=== PATIENT | female | born 1980 ===

== ENCOUNTER 2024-07-26 11:11 | Emergency (ER) | payer SELFPAY ==
--- NOTE | ~2024-07-26 | XR_ITS ---
EXAMINATION: XR chest 2V DATE: 07/26/2024 11:38 INDICATION: Cough and body aches TECHNIQUE: PA and lateral views of the chest were obtained. COMPARISON: None FINDINGS: The lungs are clear with no focal airspace opacities, pulmonary edema, pleural effusion or pneumothor ax. The cardiomediastinal silhouette is normal. Chronic mild likely physiologic anterior wedging of a couple of the thoracal lumbar junction. IMPRESSION: 1. No acute cardiopulmonary disease. Reviewed, dictated and finalized at location A. O REPAIRMAN
[2024-07-26 11:24] VITALS: BP 121/65; PULSE 82; RESP 18; TEMP 37.3; O2SAT 100
[2024-07-26 11:25] VITALS: O2SAT 100
--- OUTSIDE RECORDS SUMMARY | 2024-07-26 11:29 | XMS_ITS | Referral Summary ---
Author Organization [facility] Address [address] [place] [address] Care Team Providers Care [employer] Name Role Phone Unknown, Notinfile Primary Care Provider Unavail able Doug Amos MILL REPRESENTATIVE Unavailable [phone] Encounters Date Type Department Care Team Description 05/17/2024 12:13 AM LACQUER COATER - 05/17/2024 5:02 AM LACQUER [facility]ATER Emergency [facility] Emergency Department [address] [place] [address] Beth Sosa MD UTI (urinary tract infection), uncomplicated (Primary Dx) Discharge Disposition: Discharge to home or self care from Last 3 Months Allergies No known active allergies Social History Tobacco Use Types Packs/Day Years Used Date Smoking Tobacco: Never Tobacco Cessation:Counseling Given: Not Answered Personal Safety Answer Date Recorded Have you ever been in or are you currently in a harmful physical or emotional relationship or is someone making you feel afraid or unsafe? Denies 05/16/2024 Comments Unknown Sex and Gender Information Value Date Recorded Sex Assigned at Not on file Legal Sex Female 5:41 PM LACQUER COATER Gender Identity Not on file Sexual Orientation Not on file Last Filed Vital Signs Vital Sign Reading Time Taken Comments Blood Pressure 98/58 05/17/2024 4:23 AM LACQUER [facility]ATER Pulse 65 05/17/2024 4:23 AM LACQUER COATER Temperature 36 C (96.8 F) 05/16/2024 10:32 PM LACQUER [facility]ATER Respiratory Rate 16 05/17/2024 4:23 AM LACQUER COATER Oxygen Saturation 98% 05/17/2024 4:23 AM LACQUER [facility]ATER Inhaled Oxygen Concentration - - Weight 49.8 kg (109 lb 12.6 oz) 024 10:32 PM LACQUER [facility]ATER Height 157.5 cm (5' 2 ) 01/28/2024 6:19 AM CDT Body Mass Index 20.08 01/28/2024 6:19 AM CDT Plan of Treatment Not on file Procedures Procedure Name Priority Date/Time Associated Diagnosis Comments COCAINE METABOLITE, URINE, CONFIRMATION Routine 05/17/2024 1:14 AM LAC[facility]ER [facility]ATER URINALYSIS, MICROSCOPIC ONLY Routine 05/17/2024 1:14 AM LACQUER [facility]ATER EGFR STAT 05/17/2024 1:14 AM LAC[facility]ATER DIFFERENTIAL AUTO STAT 05/17/2024 1:1 4 AM [facility]AC[facility]ER [facility]ATER BASIC METABOLIC PANEL STAT 05/17/2024 1:14 AM LACQUER COATER CBC WITH AUTO DIFFERENTIAL STAT 05/17/2024 1:14 AM LAC[facility]ER COATER DRUGS OF ABUSE SCREEN, URINE WITH REFLEX CONFIRMATION Routine 05/17/2024 1:14 AM LACQUER [facility]ATER HCG, URINE, QUALITATIVE STAT 05/17/2024 1:14 AM LAC[facility]ATER URINE CULTURE Routine 05/17/2024 1:14 AM LAC[facility]ER [facility]ATER INFLUENZA A/B, RSV, AND COVID-19 PCR Routine 05/17/2024 1:14 AM LAC[facility]ATER URINALYSIS AND REFLEX TO MICROSCOPIC AND CULTURE Routine 05/17/2024 1:14 AM LACQUER [facility]ATER XR CHEST PA LATERAL 2 VIEWS ED 05/17/2024 12:57 AM LACQUER [facility]ATER SCREENING MAMMOGRAM BILATERAL W ERVIN Schedule Routine, Read Routine (OP Routine) 09/19/2021 12:19 PM CDT Screening mammogram, encounter for from Last 3 Months or Most Recently Relevant to Health Maintenance Results * Influenza A/B, RSV, and COVID-19 PCR Nasopharyngeal (05/17/2024 1:14 AM LACQUER [facility]ATER) COVID-19 RNA Negative Negative Influenza A RNA Negative Negative [facility] ([place]) Influenza B RNA Negative Negative [facility] ([place]) RSV RNA Negative Negative [facility] ([place]) Comment: Interpretive data: Testing performed by [facility]. This test is performed using the [employer] Xpert Xpress CoV-2/Flu/RSV plus assay. This is a multiplex, real- time reverse transcriptase PCR assay intended for the qualitative detection of nucleic acid from SARS-CoV-2, influenza A, influenza B, and respiratory syncytial virus. This assay has been cleared by the [place] Food and Drug administration. The performance characteristics have been verified by the [facility]. Results must be considered in the clinical context, and a negative result does not rule out infection. Interpretive Data last revised 2023 Nasopharyngeal 05/17/2024 1: 14 AM LAC[facility]ER [facility]ATER 05/17/2024 1:39 AM LAC[facility]ER [facility]ATER Narrative [facility] ([place]) - 05/17/2024 2:36 AM [facility]ATER Is the Patient experiencing symptoms consistent with COVID?->Yes us Beth Sosa MD LAB MICROBIOLOGY - GENERAL ORDER [place] Final Result [facility] ([place]) 1 [facility] [place] [address] * (ABNORMAL) Drugs of Abuse Screen, Urine with Reflex Confirmation (05/17/2024 1:14 AM LACQUER COATER) Amphetamine, ur Not Detected CutOff 500ng/mL Comment: Interpretive Data - Amphetamines: Samples containing greater than 500 ng/mL d-methamphetamine or other cross-reacting amphetamine compounds are reported as positive. Amphetamine immunoassays are subject to significant false positive rates due to cross-reactivity of non-amphetamine drugs. Confirmatory testing required for definitive results. Current Interpretive Data was last reviewed 2023. Barbiturates, ur Not Detected CutOff 200ng/mL [facility] ([place]) Comment: Interpretive Data - Barbiturates: Samples containing greater than 200 ng/mL secobarbital or other cross-reacting barbiturate compounds are reported as positive. False positive and false negative results are possible. Confirmatory testing required for definitive results. Current Interpretive Data was last reviewed 2023. Benzodiazepines, ur Not Detected CutOff 100ng/mL [facility] ([place]) Comment: Interpretive Data - Benzodiazepines: Samples containing greater than 100 ng/mL nordiazepam or other cross-reacting compounds are reported as positive. False positive and false negative results are possible. Confirmatory testing required for definitive results. Current Interpretive Data was last reviewed 2023. Cannabinoids, ur Screen Positive, presumptive (A) CutOff 50 ng/mL [facility] ([place]) Comment: Interpretive Data - Cannabinoids: Samples containing greater than 50 ng/mL delta-9 THC -COOH or other cross- reacting compounds are reported as positive. False positive and false negative results are possible. Confirmatory testing required for definitive results. Current Interpretive Data was last reviewed 2023. Cocaine, ur Screen Positive, presumptive (A) CutOff 150ng/mL [facility] ([place]) Comment: Interpretive Data - Cocaine: Samples containing greater than 150 ng/mL benzoylecgonine or other cross- reacting compounds are reported as positive. False positive and false negative results are possible. Confirmatory testing required for definitive results. Current Interpretive Data was last reviewed 2023. Fentanyl, Ur Not Detected CutOff 5 ng/mL [facility] ([place]) Comment: Interpretive Data - Fentanyl: Samples containing greater than 5 ng/mL norfentanyl, fentanyl, or other cross-reacting fentanyl compounds are reported as positive. False positive and false negative results are possible. Confirmatory testing required for definitive results. Current Interpretive Data was last reviewed 2023. Methadone, ur Not Detected CutOff 300ng/mL [facility] ([place]) Comment: Interpretive Data - Methadone: Samples containing greater than 300 ng/mL d,l-methadone or other cross-reacting compounds are reported as positive. False positive and false negative results are possible. Confirmatory testing required for definitive results. Current Interpretive Data was last reviewed 2023. Opiates, ur Not Detected CutOff 300ng/mL [facility] ([place]) Comment: Interpretive Data - Opiates: Samples containing greater than 300 ng/mL morphine or other cross-reacting compounds are reported as positive. False positive and false negative results are possible. Confirmatory testing required for definitive results. Current Interpretive Data was last reviewed 2023. Oxycodone, ur Not Detected CutOff 100ng/mL [facility] ([place]) Comment: Interpretive Data - Oxycodone: Samples containing greater than 100 ng/mL oxycodone or other cross-reacting compounds are reported as positive. False positive and false negative results are possible. Confirmatory testing required for definitive results. Current Interpretive Data was last reviewed 2023. Phencyclidine, ur Not Detected CutOff 25 ng/mL [facility] ([place]) Comment: Interpretive Data - Phencyclidine: Samples containing greater than 25 ng/mL phencyclidine or other cross-reacting compounds are reported as positive. False positive and false negative results are possible. Confirmatory testing required for definitive results. Current Interpretive Data was last reviewed 2023. Urine Creatinine 98 mg/dL [facility] ([place]) Comment: Interpretive Data Urine Creatinine: < 10 mg/dL is extremely dilute = or > 10 but < 20 mg/dL is dilute = or > 20 mg/dL is normal Current Interpretive Data was last revised on 2017. Urine 05/17/2024 1:14 AM [facility]ATER 05/17/2024 3:21 AM [facility]ATER Narrative [facility] ([place]) - 05/17/2024 3:34 AM [facility]AC[facility]ER [facility] Drug of Abuse screening is performed by immunoassay for medical purposes only. This is not to be used for Pain Management purposes. If Detected, confirmation testing will be performed for Amphetamines, Cocaine, Fentanyl, Methadone, Opiates, Oxycodone or Phencyclidine. us Beth Sosa MD LAB URINE ORDERABLES Final Resul t [facility] ([place]) 1 [facility] Department [place] [address] * eGFR (05/17/2024 1:14 AM LACQUER COATER) eGFR >90 >=60 mL/min/1. 73 m2 Comment: Interpretive Data Reference Interval Normal >/= 90 mL/min/1.73m2 Mildly decreased* 60 - 89 mL/min/1.73m2 Mildly to moderately decreased 45 - 59 mL/min/1.73m2 Moderately to severely decreased 30 - 44 mL/min/1.73m2 Severely decreased 15 - 29 mL/min/1.73m2 Kidney Failure < 15 mL/min/1.73m2 *Relative to young adult level Estimated glomerular filtration rate is determined by the 2020 CKD-EPI equation recommended by the National Kidney Foundation (A Unifying Approach to GFR Estimation: Recommendations of the NKF-ASK Task Force on Reassessing the Inclusion of Race in Diagnosing Kidney Disease, JASN 2020). The CKD-EPI equation should not be used for patients with unstable renal function and has not been validated in children and those over 70. Current interpretive data was last reviewed 2021. Blood 05/17/2024 1:14 AM LACQUER COATER 05/17/2024 1:39 AM LACQUER COATER us Beth Sosa MD LAB BLOOD ORDERABLES Final Resul t [facility] ([place]) 1 [facility] [place] [address] * (ABNORMAL) Differential, auto (05/17/2024 1:14 AM LACQUER COATER) Neutrophil abs 8.1(H) 1.5 - 6.5 K/cumm Imm gran abs 0.0 0.0 - 0.1 K/cumm [facility] ([place]) Lymphocyte abs 1.5 0.8 - 3.3 K/cumm [facility] ([place]) Monocyte abs 0.8 0.2 - 0.8 K/cumm [facility] ([place]) Eosinophil abs 0.2 0.0 - 0.5 K/cumm [facility] ([place]) Basophil abs 0.1 0.0 - 0.1 K/cumm [facility] ([place]) Neutrophil pct 75.6 % [facility] ([place]) Comment: Interpretive Data Percent cell count reference ranges are not reported, since discordance with absolute values may lead to misinterpretation of CBC data. Current Interpretive Data was last revised on 2017. Imm gran pct 0.3 % [facility] ([place]) Comment: Interpretive Data Percent cell count reference ranges are not reported, since discordance with absolute values may lead to misinterpretation of CBC data. Current Interpretive Data was last revised on 2017. Lymphocyte pct 14.2 % [facility] ([place]) Comment: Interpretive Data Percent cell count reference ranges are not reported, since discordance with absolute values may lead to misinterpretation of CBC data. Current Interpretive Data was last revised on 2017. Monocyte pct 7.1 % [facility] ([place]) Comment: Interpretive Data Percent cell count reference ranges are not reported, since discordance with absolute values may lead to misinterpretation of CBC data. Current Interpretive Data was last revised on 2017. Eosinophil pct 2.1 % [facility] ([place]) Comment: Interpretive Data Percent cell count reference ranges are not reported, since discordance with absolute values may lead to misinterpretation of CBC data. Current Interpretive Data was last revised on 2017. Basophil pct 0.7 % [facility] ([place]) Comment: Interpretive Data Percent cell count reference ranges are not reported, since discordance with absolute values may lead to misinterpretation of CBC data. Current Interpretive Data was last revised on 2017. Blood 05/17/2024 1:14 AM LACQUER COATER 05/17/2024 1:39 AM LACQUER COATER us Beth Sosa MD LAB BLOOD ORDERABLES Final Resul t [facility] ([place]) 1 [facility] [place] [address] * (ABNORMAL) Urinalysis reflex to microscopic and culture Urine, clean voided (05/17/2024 1:14 AM LACQUER COATER) Color, ur Preeti Yellow Clarity, ur Cloudy(A) Clear [facility] ([place]) Specific gravity, ur 1.015 1.003 - 1.030 [facility] ([place]) pH, urine 6.5 [facility] ([place]) Comment: Interpretive Data U rine pH is affected by diet, medications, systemic acid-base disturbances, and renal tubular function. pH may affect urinary stone formation. For example, urine pH below 6.0 may help reduce the tendency for calcium phosphate stones and pH greater than 6.0 may reduce the tendency for uric acid stone formation. Source: [facility] Current Interpretive Data was last revised on 2017 Protein, ur ql Negative Negative [facility] ([place]) Glucose, ur ql Negative Negative [facility] ([place]) Ketones, ur Negative Negative [facility] ([place]) Bilirubin, ur Negative Negative [facility] ([place]) Blood, ur 1+(A) Negative [facility] ([place]) Urobilinogen, ur <2.0 <2.0 mg/dL [facility] ([place]) Nitrite, ur Negative Negative [facility] ([place]) Leukocyte esterase, ur 3+(A) Negative [facility] ([place]) UA reflex comment Reflex to microscopic UA will be performed. [facility] ([place]) Urine, clean voided 05/17/2024 1:14 AM [facility]AC[facility]ATER 05/17/2024 1:39 AM LACQUER [facility]ATER us Beth Sosa MD LAB MICROBIOLOGY - GENERAL ORDER [place] Final Result [facility] ([place]) 1 [facility] Department [place] [address] * (ABNORMAL) CBC with auto differential (05/17/2024 1:14 AM LACQUER [facility]ATER) WBC 10.7(H) 3.8 - 9.9 K/cumm Hgb 11.0(L) 11.9 - 15.5 g/dL [facility] ([place]) Hct 35.6 35.6 - 45.5 % [facility] ([place]) Plt 276 150 - 400 K/cumm [facility] ([place]) MPV 11.0 9.1 - 12.3 fL [facility] ([place]) RBC 4.02 3.90 - 5.20 M/cumm [facility] ([place]) MCV 88.6 81.3 - 96.4 fL [facility] ([place]) MCH 27.4 27.1 - 33.3 pg [facility] ([place]) MCHC 30.9(L) 32.3 - 35.7 g/dL [facility] ([place]) RDW CV 13.9 11.1 - 14.9 % [facility] ([place]) RDW SD 45.1 35.7 - 48.1 fL [facility] ([place]) NRBC abs 0.00 0.00 - 0.01 K/cumm [facility] ([place]) Blood 05/17/2024 1:14 AM LAC[facility]ATER 05/17/2024 1:39 AM LACQUER COATER Beth Sosa MD LAB BLOOD ORDERABLES Final Resul t Performing Organization Address City/[facility]/ZIP Co de Phone Number [facility] ([place]) 1 [facility] [place] [address] * hCG, urine, qualitative (05/17/2024 1:14 AM LACQUER COATER) HCG, ur Negative Negative Urine 05/17/2024 1:14 AM LACQUER COATER 05/17/2024 2:42 AM LACQUER COATER Beth Sosa MD LAB URINE ORDERABLES Final Resul t Performing Organization Address [facility] de Phone Number [facility] ([place]) [address] [place] [address] * (ABNORMAL) Cocaine Confirmation, Urine (05/17/2024 1:14 AM LACQUER COATER) Cocaine Metabolite (BEG) Conf, Ur Confirmed Positive(A) CutOff 100ng/mL Comment: Interpretive Data This test detects the presence or absence of drug compounds using LC Tandem mass spectrometry. While this test is highly specific, false positive and false negative results may occur in very rare circumstances. Contact the laboratory for consultation, if needed. Performance characteristics were determined by the [facility] in a manner consistent with CLIA requirement and has not been cleared or approved by the U.S. Food and Drug Administration. Current interpretive data was last revised on 2020. Testing performed by: [facility], [address] [place]., [address] Urine 05/17/2024 1:14 AM LAC[facility]ER [facility]ATER 05/17/2024 12:44 PM LACQUER COATER Beth Sosa MD LAB URINE ORDERABLES Final Resul t Performing Organization Address [facility]/ZIP Co de Phone Number [facility] ([place]) 1 [facility] [place] [address] * (ABNORMAL) Urinalysis, microscopic only (05/17/2024 1:14 AM LACQUER COATER) WBC, ur >50(A) 0 - 5 /HPF RBC, ur 6-10(A) 0 - 2 /HPF [facility] ([place]) Epithelial cells, squamous, ur 1-5 0 - 5 /HPF [facility] ([place]) Bacteria, ur Trace(A) [facility] ([place]) Mucous, ur Present(A) [facility] ([place]) Culture Reflex Comment Reflex to urine culture will be performed. [facility] ([place]) Urine, clean voided 05/17/2024 1:14 AM LACQUER COATER 05/17/2024 1:39 AM LACQUER COATER Beth Sosa MD LAB URINE ORDERABLES Final Resul t Performing Organization Address [facility] Co de Phone Number [facility] ([place]) 1 [facility] [place] [address] * Urine culture Urine, clean voided (05/17/2024 1:14 AM LACQUER COATER) Report Final Report: Less than 100,000 colonies/mL (clinically insignificant growth based on current clinical standards) Comment:Testing performed by : [facility], 1 [facility] [place]., [address] Organism (CLINICALLY INSIGNIFICANT GROWTH [facility] ([place]) Urine, clean voided 05/17/2024 1:14 AM LACQUER COATER 05/17/2024 5:48 AM LACQUER COATER Narrative [facility] ([place]) - 05/18/2024 10:00 AM LACQUER COATER Urine culture reflexed based upon urinalysis results. Testing performed by [facility] ([phone]) us Beth Sosa MD LAB MICROBIOLOGY - GENERAL ORDER [place] Final Result [facility] ([place]) 1 [facility] [place] [address] * Basic metabolic panel (05/17/2024 1:14 AM LACQUER COATER) Sodium 135 135 - 145 mmol/L Potassium, pl 4.0 3.3 - 4.9 mmol/L [facility] ([place]) Chloride 100 97 - 110 mmol/L [facility] ([place]) CO2 29 22 - 32 mmol/L [facility] ([place]) Anion gap 6 2 - 15 mmol/L [facility] ([place]) BUN 11 6 - 25 mg/dL [facility] ([place]) Creatinine 0.67 0.60 - 1.10 mg/dL [facility] ([place]) Glucose 97 70 - 199 mg/dL [facility] ([place]) Comment: Interpretive Data Fasting glucose >/= 126 mg/dl is diagnostic for diabetes. Fasting is defined as no caloric intake for at least 8 hours. Fasting glucose between 100 mg/dl to 125 mg/dl is diagnostic of prediabetes. In a patient with classic symptoms of hyperglycemia or hyperglycemic crisis, a random glucose >/= 200 mg/dl is diagnostic for diabetes. In the absence of unequivocal hyperglycemia, results should be confirmed by repeat testing. The classification and Diagnosis of Diabetes Diabetes Care 202; 46: S19-S40. Current interpretive data was last revised 2022. Calcium 9.1 8.5 - 10.3 mg/dL [facility] ([place]) Blood 05/17/2024 1:14 AM LACQUER COATER 05/17/2024 1:39 AM LACQUER COATER Beth Sosa MD LAB BLOOD ORDERABLES Final Resul t [facility] ([place]) 1 [facility] [place] [address] * XR Chest Pa Lateral 2 Vw (05/17/2024 12:57 AM LACQUER COATER) Anatomical Region Laterality Modality Body, Chest N/A Computed Radiogr aphy 05/17/2024 1:02 AM LACQUER COATER Narrative 05/17/2024 1:02 AM LACQUER COATER EXAM DESCRIPTION: XR CHEST PA LATERAL 2 VIEWS REASON FOR STUDY: cough Patient comes in ambulatory with multiple medical complaints. Patient states that she has been having generalized weakness and states I have been sick for a long time . States her car was cleaned by an unknown person and when she got it back, it was covered in white and black mold and states she has been sick ever since. Patient states she has body aches, congestion, and has been sleeping for days Former smoker No hx of asthma or cardiac hx No surgery TECHNIQUE: 2 radiographic view(s) of the chest. COMPARISON: None FINDINGS: LUNGS: No focal opacity, pleural effusion, or pneumothorax. HEART/MEDIASTINUM: Cardiac silhouette normal in size. Mediastinal and hilar contours appear normal. LINES/TUBES: None. BONES: No acute osseous abnormality. IMPRESSION: No acute cardiopulmonary abnormality. THIS IS AN ELECTRONICALLY VERIFIED FINAL REPORT 05/17/2024 1:02 AM - Electronically signed by Bolivar Barriga M.D. KH: MARIBELL Report ID: [id number] Reading Location: [id number] Procedure Note Bolivar Barriga MD - 05/17/2024 EXAM DESCRIPTION: XR CHEST PA LATERAL 2 VIEWS REASON FOR STUDY: cough Patient comes in ambulatory with multiple medical complaints. Patientstates that she has been having generalized weakness and states I have been sickfor a long time . States her car was cleaned by an unknown person and when shegot it back, it was covered in white and black mold and states she has been sick ever since. Patient states she has body aches, congestion, and hasbeen sleeping for days Former smoker No hx of asthma or cardiac hx Nosurgery TECHNIQUE: 2 radiographic view(s) of the chest. COMPARISON: None FINDINGS: LUNGS: No focal opacity, pleural effusion, or pneumothorax. HEART/MEDIASTINUM: Cardiac silhouette normal in size. Mediastinal andhilar contours appear normal. LINES/TUBES: None. BONES: No acute osseous abnormality. IMPRESSION: No acute cardiopulmonary abnormality. THIS IS AN ELECTRONICALLY VERIFIED FINAL REPORT 05/17/2024 1:02 AM - Electronically signed by Bolivar Barriga M.D. KH: MARIBELL Report ID: [id number] Reading Location: [place] [address] Beth Sosa MD IMG XR PROCEDURES Final Result * Screening Mammogram Bilateral W Ervin (09/19/2021 12:19 PM CDT) Anatomical Region Laterality Modality Breast Bilateral Mammography Narrative 09/20/2021 1:42 PM CDT Mammogram Technique: Bilateral Digital Breast Tomosynthesis, Bilateral C-view 2D Screening mammogram. Views obtained: bilateral craniocaudal and bilateral mediolateral oblique. Computer Aided Detection was performed. Mammogram Findings: No prior imaging studies are available for comparison. The breasts are extremely dense, which lowers the sensitivity of mammography. There is no suspicious abnormality in either breast. Impression: There is no mammographic evidence of malignancy. Annual screening mammography is recommended. OVERALL FINAL ASSESSMENT: BI-RADS CATEGORY 1: Negative. Procedure Note Julisa Drake MD - 09/20/2021 Mammogram Technique: Bilateral Digital Breast Tomosynthesis, Bilateral C-view 2D Screening mammogram. Views obtained: bilateral craniocaudal and bilateral mediolateral oblique. Computer Aided Detection was performed. Mammogram Findings: No prior imaging studies are available for comparison. The breasts are extremely dense, which lowers the sensitivity of mammography. There is no suspicious abnormality in either breast. Impression: There is no mammographic evidence of malignancy. Annual screening mammography is recommended. OVERALL FINAL ASSESSMENT: BI-RADS CATEGORY 1: Negative. us Self Screening Mammogram IMG MAMMO PROCEDURES Fi nal Result from Last 3 Months or Most Recently Relevant to Health Maintenance Insurance [facility] OPEN ACCESS Care Teams [employer] Relationship Specialty Start Date End Date Unknown, Notinfile PCP - General 01/28/24 Doug Amos NP [address] [place] [address] [employer]ical [employer] 01/28/24
--- OUTSIDE RECORDS SUMMARY | 2024-07-26 11:29 | XMS_ITS | Continuity of Care Document ---
Author Organization [facility] Address [address] [place] [address] Phone Care Team Providers Care Manager Integrity Name Role Phone Phill Limon MD Unavailable Unavailable Allergies, Adverse Reactions, Alerts Substance Reaction Status Criticality No Known Allergies Active No Inform ation Medications Medication Instructions Dosage Effective Dates (start - stop) Status Comments Valium 5 mg tablet take 1 tablet by oral route 30 minutes prior to procedure - No Longer Active Tegretol XR 200 mg tablet,extended release take 1 tablet by oral route every 12 hours 200 MG - No Longer Active Zyprexa 5 mg tablet take 1 tablet by oral route BID - No Longer Active Advance Directives Directive Yes / No Effective Date File Name No Information Encounters Encounter Description Practice Location Reason(s) For Visit Diagnoses Date Provider Providers Copied on Encounter [facility], [address], [place], [place], [id number] , tel: [phone] [facility] Psychosis, unspecified psychosis type [address] Ash[address]. [address], [place], [place], [id number], [place]. tel:[phone] Referring Provider: Jose[address], [place], [address] . tel:[phone] [facility], [address], [place], [place], [id number] , tel: [phone] [facility] [place] No Information 8 Ashly Pollock. [address], [place], [place], [id number], [place]. tel:[phone] Farhan Morris, [address], [place], [place], [address] , [place] tel: [phone] Farhan Jara HallucinationDelusio n 8 Ashly Pollock. [address], [address], [place], [place], [address], [place]. tel:[phone] Referring Provider: Josemanuel Marcos [address], [place], [address] . tel:[phone] Family History Family Member Type Diagnosis Age At Onset Problem (finding) Family history of strok e Father Problem (finding) alcoholism Father Problem (finding) stroke Payers Payer name Insurance type Covered libertarian ID Authoriza tikoby(s) R [employer] CI [id number] Social History Type Description Quantity Date Captured Comments Alcohol Use Details Caffeine Use Details coffee Tobacco Use Status No Information Smoking Status Former smoker Sex Female Sexual Orientation Straight or heterosexual Gender Identity Female Vital Signs Date / Time: Height Weight BMI Pulse Rate Blood Pressure Temperature Respiratory Rate Body Surface Area Head Circumference Head Circ. Percentile Wt./Owen. Percentile BMI percentile Pulse Ox Inhaled Ox 8:51 AM 62.00 in 65.544 kg (144.50 lbs) 26.4 3 kg/m eter (2) 78 /min 110/73 mm[Hg] 99 % Chief Complaint And Reason For Visit No Information Reason For Referral Reason For Referral No Information History Of Present Illness Encounter Date Complaint History Of Prese nt Illness No Information Functional Status Date Functional Assessmen t No Information Instructions Date Instruction Additional Infor mation No Information Assessments Type Assessment Date No Information Patient Care Teams Name Effective Dates (start - stop) Status Members No Information
--- OUTSIDE RECORDS SUMMARY | 2024-07-26 11:29 | XMS_ITS | Clinical Summary ---
Author Organization [facility] Address [address] [place] [address] Care Team Providers Care Critical Care Physician Assistant Name Role Phone Unknown, Notinfile Primary Care Provider Unavail able Doug Amos PROGRESS MAN Unavailable [phone] Allergies No known active allergies Encounters Date Type Department Care Team Description 05/17/2024 12:13 AM DIAMOND EXPERT - 05/17/2024 5:02 AM DIAMOND EXPERT Emergency [facility] Emergency Department [address] [place] [address] Beth Sosa MD UTI (urinary tract infection), uncomplicated (Primary Dx) Discharge Disposition: Discharge to home or self care from Last 3 Months Social History Tobacco Use Types Packs/Day Years [...] on file Legal Sex Female 5:41 PM DIAMOND EXPERT Gender Identity Not on file Sexual Orientation Not on file Obstetrics History Last Filed Vital Signs Vital Sign Reading Time Taken Comments Blood Pressure 98/58 05/17/2024 4:23 AM DIAMOND EXPERT Pulse 65 05/17/2024 4:23 AM DIAMOND EXPERT Temperature 36 C (96.8 F) 05/16/2024 10:32 PM DIAMOND EXPERT Respiratory Rate 16 05/17/2024 4:23 AM DIAMOND EXPERT Oxygen Saturation 98% 05/17/2024 4:23 AM DIAMOND EXPERT Inhaled Oxygen Concentration - - Weight 49.8 kg (109 lb 12.6 oz) 024 10:32 PM DIAMOND EXPERT Height 157.5 cm (5' 2 ) 01/28/2024 6:19 AM CDT Body Mass Index 20.08 01/28/2024 6:19 AM CDT Plan of Treatment Health Maintenance Due Date Last Done Comments Cervical Cancer Screening 1979 Colon Cancer Screening-Colonoscopy 1979 Depression Screening 1979 Hepatitis C Screening 1979 Hepatitis B Screening 1997 Regular Well Visit/Exam 18-64 1997 Breast Cancer Screening-Mammogram 09/19/2022 022 Influenza Vaccine (#1) 2024 DTaP/Tdap/Td Vaccine (2 - Td or Tdap) 05/06/2034 05/06/2024 HPV Vaccines Aged Out No longer eligi ble based on patient's age to complete this topic Pneumococcal vaccine <65 Aged Out No longer eligible based on patient's age to complete this topic Procedures Procedure Name Priority Date/Time Associated Diagnosis Comments COCAINE METABOLITE, URINE, CONFIRMATION Routine 05/17/2024 1:14 AM DIAMOND EXPERT URINALYSIS, MICROSCOPIC ONLY Routine 05/17/2024 1:14 AM DIAMOND EXPERT EGFR STAT 05/17/2024 1:14 AM DIAMOND EXPERT DIFFERENTIAL AUTO STAT 05/17/2024 1:1 4 AM DIAMOND EXPERT BASIC METABOLIC PANEL STAT 05/17/2024 1:14 AM DIAMOND EXPERT CBC WITH AUTO DIFFERENTIAL STAT 05/17/2024 1:14 AM DIAMOND EXPERT DRUGS OF ABUSE SCREEN, URINE WITH REFLEX CONFIRMATION Routine 05/17/2024 1:14 AM DIAMOND EXPERT HCG, URINE, QUALITATIVE STAT 05/17/2024 1:14 AM DIAMOND EXPERT URINE CULTURE Routine 05/17/2024 1:14 AM DIAMOND EXPERT INFLUENZA A/B, RSV, AND COVID-19 PCR Routine 05/17/2024 1:14 AM DIAMOND EXPERT URINALYSIS AND REFLEX TO MICROSCOPIC AND CULTURE Routine 05/17/2024 1:14 AM DIAMOND EXPERT XR CHEST PA LATERAL 2 VIEWS ED 05/17/2024 12:57 AM DIAMOND EXPERT SCREENING MAMMOGRAM BILATERAL W ERVNI Schedule Routine, Read Routine (OP Routine) 09/19/2021 12:19 PM CDT Screening mammogram, encounter for from Last 3 Months or Most Recently Relevant to Health Maintenance Results * Influenza A/B, RSV, and COVID-19 PCR Nasopharyngeal (05/17/2024 1:14 AM DIAMOND EXPERT) COVID-19 RNA Negative Negative Influenza A RNA Negative Negative [facility] ([place] Influenza B RNA Negative Negative [facility] ([place]) RSV RNA Negative Negative [facility] ([place]) Comment: Interpretive data: Testing performed by [facility]. This test is performed using the [employer] Xpert Xpress CoV-2/Flu/RSV plus assay. This is a multiplex, real- time reverse transcriptase PCR assay intended for the qualitative detection of nucleic acid from SARS-CoV-2, influenza A, influenza B, and respiratory syncytial virus. This assay has been cleared by the [place] Food and Drug administration. The performance characteristics have been verified by the [facility]. Results must be considered in the clinical context, and a negative result does not rule out infection. Interpretive Data last revised 2023 Nasopharyngeal 05/17/2024 1: 14 AM DIAMOND EXPERT 05/17/2024 1:39 AM DIAMOND EXPERT Narrative [facility] ([place]) - 05/17/2024 2:36 AM DIAMOND EXPERT Is the Patient experiencing symptoms consistent with COVID?->Yes us Beth Sosa MD LAB MICROBIOLOGY - GENERAL ORDER [place] Final Result [facility] ([place]) 1 [facility] [place] [address] * (ABNORMAL) Drugs of Abuse Screen, Urine with Reflex Confirmation (05/17/2024 1:14 AM DIAMOND EXPERT) Amphetamine, ur Not Detected CutOff 500ng/mL Comment: Interpretive Data - Amphetamines: Samples containing greater than 500 ng/mL d-methamphetamine or other cross-reacting amphetamine compounds are reported as positive. Amphetamine immunoassays are subject to significant false positive rates due to cross-reactivity of non-amphetamine drugs. Confirmatory testing required for definitive results. Current Interpretive Data was last reviewed 2023. Barbiturates, ur Not Detected CutOff 200ng/mL [facility] ([place]) Comment: Interpretive Data - Barbiturates: Samples containing [...] 2023. Opiates, ur Not Detected CutOff 300ng/mL [facility] ([place]) Comment: Interpretive Data - Opiates: Samples containing greater than 300 ng/mL morphine or other cross-reacting compounds are reported as positive. False positive and false negative results are possible. Confirmatory testing required for definitive results. Current Interpretive Data was last reviewed 2023. Oxycodone, ur Not Detected CutOff 100ng/mL [facility] ([place]) Comment: Interpretive Data - Oxycodone: Samples [...] revised on 2017. Urine 05/17/2024 1:14 AM DIAMOND EXPERT 05/17/2024 3:21 AM DIAMOND EXPERT Narrative [facility] ([place]) - 05/17/2024 3:34 AM DIAMOND EXPERT Drug of Abuse screening is performed by immunoassay for medical purposes only. This is not to be used for Pain Management purposes. If Detected, confirmation testing will be performed for Amphetamines, Cocaine, Fentanyl, Methadone, Opiates, Oxycodone or Phencyclidine. Beth Sosa MD LAB URINE ORDERABLES Final Resul t Performing Organization Address City/[facility]/ZIP Co de Phone Number [facility] ([place]) 1 [facility] [place] [address] * eGFR (05/17/2024 1:14 AM DIAMOND EXPERT) eGFR >90 >=60 mL/min/1. 73 m2 Comment: [...] last reviewed 2021. Blood 05/17/2024 1:14 AM DIAMOND EXPERT 05/17/2024 1:39 AM DIAMOND EXPERT us Beth Sosa MD LAB BLOOD ORDERABLES Final Resul t [facility] ([place]) 1 [facility] [place] [address] * (ABNORMAL) Differential, auto (05/17/2024 1:14 AM DIAMOND EXPERT) Neutrophil abs 8.1(H) 1.5 - 6.5 K/cumm [...] revised on 2017. Basophil pct 0.7 % [facility] ([place]) Comment: Interpretive Data Percent cell count reference ranges are not reported, since discordance with absolute values may lead to misinterpretation of CBC data. Current Interpretive Data was last revised on 2017. Blood 05/17/2024 1:14 AM DIAMOND EXPERT 05/17/2024 1:39 AM DIAMOND EXPERT us Beth Sosa MD LAB BLOOD ORDERABLES Final Resul t [facility] ([place]) 1 [facility] [place] [address] * (ABNORMAL) Urinalysis reflex to microscopic and culture Urine, clean voided (05/17/2024 1:14 AM DIAMOND EXPERT) Color, ur Preeti Yellow Clarity, ur Cloudy(A) Clear [facility] ([place]) Specific gravity, ur 1.015 1.003 - 1.030 [facility] ([place]) pH, urine 6.5 [facility] ([place]) Comment: Interpretive Data U rine pH is affected by diet, medications, systemic acid-base disturbances, and renal tubular function. pH may affect urinary stone formation. For example, urine pH below 6.0 may help reduce the tendency for calcium phosphate stones and pH greater than 6.0 may reduce the tendency for uric acid stone formation. Source: [facility] [employer] Current Interpretive Data was last revised on [...] ([place]) Urine, clean voided 05/17/2024 1:14 AM DIAMOND EXPERT 05/17/2024 1:39 AM DIAMOND EXPERT us Beth Sosa MD LAB MICROBIOLOGY - GENERAL ORDER [place] Final Result [facility] ([place]) 1 [facility] Department of Laboratories [place], [place] [id number] * (ABNORMAL) CBC with auto differential (05/17/2024 1:14 AM DIAMOND EXPERT) WBC 10.7(H) 3.8 - 9.9 K/cumm Hgb [...] RDW SD 45.1 35.7 - 48.1 fL [facility] ([place]) NRBC abs 0.00 0.00 - 0.01 K/cumm [facility] ([place]) Blood 05/17/2024 1:14 AM DIAMOND EXPERT 05/17/2024 1:39 AM DIAMOND EXPERT us Beth Sosa MD LAB BLOOD ORDERABLES Final Resul t [facility] ([place]) 1 [facility] [place] [address] * hCG, urine, qualitative (05/17/2024 1:14 AM DIAMOND EXPERT) HCG, ur Negative Negative Urine 05/17/2024 1:14 AM DIAMOND EXPERT 05/17/2024 2:42 AM DIAMOND EXPERT us Beth Sosa MD LAB URINE ORDERABLES Final Resul t [facility] ([place]) 1 [facility] [place] [address] * (ABNORMAL) Cocaine Confirmation, Urine (05/17/2024 1:14 AM DIAMOND EXPERT) Cocaine Metabolite (BEG) Conf, Ur Confirmed Positive(A) CutOff 100ng/mL Comment: Interpretive Data This test detects the presence or absence of drug compounds using LC Tandem mass spectrometry. While this test is highly specific, false positive and false negative results may occur in very rare circumstances. Contact the laboratory for consultation, if needed. Performance characteristics were determined by the [facility] in a manner consistent with CLIA requirement and has not been cleared or approved by the U.S. Food and Drug Administration. Current interpretive data was last revised on 2020. Testing performed by: [facility], [address] [place]., [address] Urine 05/17/2024 1:14 AM DIAMOND EXPERT 05/17/2024 12:44 PM DIAMOND EXPERT us Beth Sosa MD LAB URINE ORDERABLES Final Resul t Performing Organization Address [facility] Co de Phone Number JANETH DESIR ([place]) [address] [place] [address] [place] [employer] [place] [address] * (ABNORMAL) Urinalysis, microscopic only (05/17/2024 1:14 AM DIAMOND EXPERT) WBC, ur >50(A) 0 - 5 /HPF RBC, ur 6-10(A) 0 - 2 /HPF [facility] ([place]) Epithelial cells, squamous, ur 1-5 0 - 5 /HPF [facility] ([place]) Bacteria, ur Trace(A) [facility] ([place]) Mucous, ur Present(A) [facility] ([place]) Culture Reflex Comment Reflex to urine culture will be performed. [facility] ([place]) Urine, clean voided 05/17/2024 1:14 AM DIAMOND EXPERT 05/17/2024 1:39 AM DIAMOND EXPERT us Beth Sosa MD LAB URINE ORDERABLES Final Resul t Performing Organization Address City/[facility]/ZIP Co de Phone Number JANETH DESIR ([place]) 1 [facility] [place] [address] * Urine culture Urine, clean voided (05/17/2024 1:14 AM DIAMOND EXPERT) Report Final Report: Less than 100,000 colonies/mL (clinically insignificant growth based on current clinical standards) Comment:Testing performed by : [facility], 1 [facility], [place]., [address] Organism (CLINICALLY INSIGNIFICANT GROWTH [facility] ([place]) Urine, clean voided 05/17/2024 1:14 AM DIAMOND EXPERT 05/17/2024 5:48 AM DIAMOND EXPERT Narrative [facility] ([place]) - 05/18/2024 10:00 AM DIAMOND EXPERT Urine culture reflexed based upon urinalysis results. Testing performed by [facility] Microbiology Laboratory ([phone]) us Beth Sosa MD LAB MICROBIOLOGY - GENERAL ORDER [place] Final Result [facility] ([place]) 1 [facility] Department [place] [address] * Basic metabolic panel (05/17/2024 1:14 AM DIAMOND EXPERT) Sodium 135 135 - 145 mmol/L Potassium, [...] ([place]) Glucose 97 70 - 199 mg/dL [facility] ([place]) Comment: Interpretive Data Fasting glucose [...] classification and Diagnosis of Diabetes Diabetes Care 2021; 46: S19-S40. Current interpretive data was last revised 2022. Calcium 9.1 8.5 - 10.3 mg/dL T[facility]ORCELINA [facility] ([place]) Blood 05/17/2024 1:14 AM DIAMOND EXPERT 05/17/2024 1:39 AM DIAMOND EXPERT us Beth Sosa MD LAB BLOOD ORDERABLES Final Resul t [facility] ([place]) 1 [facility] [place] [address] * XR Chest Pa Lateral 2 Vw (05/17/2024 12:57 AM DIAMOND EXPERT) Anatomical Region Laterality Modality Body, Chest N/A Computed Radiogr aphy 05/17/2024 1:02 AM DIAMOND EXPERT Narrative 05/17/2024 1:02 AM DIAMOND EXPERT EXAM DESCRIPTION: XR CHEST PA LATERAL 2 [...] Bolivar Barriga M.D. K[facility]: MAR[facility]ELL Report ID: [id number] Reading Location: [id number] Procedure Note Bolivar Barriga MD - 05/17/2024 [...] Bolivar Barriga M.D. K[facility]: MAR[facility]ELL Report ID: [id number] Reading Location: [place] [address] Beth Sosa MD IMG XR PROCEDURES Final [...] Most Recently Relevant to Health Maintenance Insurance PLAN [employer] OPEN ACCESS Care Teams Critical Care Physician Assistant Relationship Specialty Start Date End Date Unknown, Notinfile PCP - General 01/28/24 Doug Amos NP [address] [place] [address] Removable Prosthodontist 01/28/24
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
--- NOTE | 2024-07-26 11:35 | ED.GENADULT ---
HPI - General Adult General Chief complaint: Upper Respiratory Infection Stated complaint: body aches, cough Time Seen by Provider: 07/26/24 11:18 History of Present Illness HPI narrative: 44-year-old female presented emergency department for evaluation for chills body aches fatigue that has been ongoing since . Related Data Allergies Allergy/AdvReac Type Severity Reaction Status Date / Time No Known Allergies Allergy Verified 07/26/24 11:14 Review of Systems Review of Systems: All systems reviewed & are unremarkable except as noted in HPI and below Exam Narrative: APPEARANCE: Well appearing, no pain, no distress, well-nourished. HEAD: normocephalic, atraumatic. EYES: PERRLA/EOMI, conjunctivae clear. NOSE: Normal no drainage EARS:TMS clear with good light reflex. THROAT: Pharynx clear, no exudate. NECK: Supple. No adenopathy, no masses. RESPIRATORY: Airway patent, respirations nonlabored. Clear to auscultation bilaterally, no rales, rhonchi, wheezing. CARDIOVASCULAR: Regular rate and rhythm without murmurs rubs or gallops. ABDOMINAL: Soft, nontender, nondistended, normal bowel sounds MUSCULOSKELETAL: Moves all extremities. Strength/ROM intact, No edema, No calf tenderness. NEURO: Alert. Cranial nerves II through XII intact. SKIN: Warm, dry. Normal Color Course Vital Signs Vital signs: Vital Signs Temperature 99.2 F 07/26/24 11:24 Pulse Rate 82 07/26/24 11:24 Respiratory Rate 18 07/26/24 11:24 Blood Pressure 121/65 07/26/24 11:24 Pulse Oximetry 100 07/26/24 11:24 Oxygen Delivery Room Air 07/26/24 11:24 Temperature 99.2 F 07/26/24 11:24 Pulse Rate 82 07/26/24 11:24 Respiratory Rate 18 07/26/24 11:24 Blood Pressure 121/65 07/26/24 11:24 Pulse Oximetry 100 07/26/24 11:25 Oxygen Delivery Room Air 07/26/24 11:25 Medical Decision Making [facility] Narrative Medical decision making narrative: 44-year-old female present to the emergency department for evaluation for body aches fatigue cough and congestion. Patient's x-ray was negative. Patient did test positive for influenza A. Differential Diagnosis Differential Diagnosis: COVID, RSV, influenza, pneumonia Vital Signs Vital Signs: Vital Signs Temperature 99.2 F 07/26/24 11:24 Pulse Rate 82 07/26/24 11:24 Respiratory Rate 18 07/26/24 11:24 Blood Pressure 121/65 07/26/24 11:24 Pulse Oximetry 100 07/26/24 11:24 Oxygen Delivery Room Air 07/26/24 11:24 Temperature 99.2 F 07/26/24 11:24 Pulse Rate 82 07/26/24 11:24 Respiratory Rate 18 07/26/24 11:24 Blood Pressure 121/65 07/26/24 11:24 Pulse Oximetry 100 07/26/24 11:25 Oxygen Delivery Room Air 07/26/24 11:25 Lab Data Labs: Lab Results 07/26/24 Range/Units 11:23 Influenza A (RT-PCR) Positive A (Negative) Influenza B (RT-PCR) Negative (Negative) RSV (RT-PCR) Negative (Negative) SARS-CoV-2 RNA (RT-PCR) Negative (Negative) Imaging Data Radiologist's impression: Impressions Chest X-Ray 07/26/24 11:39 IMPRESSION: 1. No acute cardiopulmonary disease. Discharge Plan Discharge Clinical Impression: Influenza Patient Disposition: Home, Self-Care Condition: Stable Instructions: Antibiotic Form Additional Instructions: Tylenol and ibuprofen for pain control. Albuterol inhaler for cough and shortness of breath. Tessalon Perles for cough. Have close follow-up with your primary care physician. If you have any worsening symptoms then please call or return to the emergency department. Patient Language: Sami Prescriptions: New benzonatate 100 mg capsule 100 mg PO TID PRN (Reason: cough) Qty: 14 0RF albuterol sulfate 90 mcg/actuation HFA aerosol inhaler 1 puff inhalation QID Qty: 6.7 0RF Follow-up/Referrals: UNKNOWN,DOCTOR [Primary Care Provider] -
[2024-07-26 12:08] LABS: Influenza A QL RT-PCR Positive (Negative); Influenza B QL RT-PCR Negative (Negative); RSV RNA, RT-PCR Negative (Negative); SARS-CoV-2 RNA PCR Negative (Negative)
--- NOTE | 2024-07-26 12:52 | PC.NURSE ---
pt has been asked numerous times to leave the room due to her being discharged. pt was asked by 2 different RN and security and pt refuses to leave. pt is now being escorted out by security
--- NOTE | 2024-07-26 13:00 | PC.NURSE ---
pt was given a bus pass by security, pt still wouldn't leave. pt was then offered a wheelchair by 2 security guards to escort her out but pt refused wheelchair and was walked out by security
== END 2024-07-26 13:03 | disposition home or self-care (01) ==
PROVIDERS: Emergency Provider Emergency Medicine
DX: J10.1 Influenza due to other identified influenza virus with other respiratory manifestations (principal); Z20.822 Contact with and (suspected) exposure to COVID-19
CPT/HCPCS: 71046; 87637; 99283